=== PATIENT | female | born 1995 | race Caucasian/White ===

== ENCOUNTER → 2019-09-26 | Outpatient (CLI) | payer MEDICAID | LOC: LABNPT 15:14 | PROVIDERS: ATTEND Family Medicine | DX: Z34.80 Encounter for supervision of other normal pregnancy, unspecified trimester (principal) | CPT/HCPCS: 87081 ==

== ENCOUNTER → 2019-09-26 | Outpatient (CLI) | payer MEDICAID | LOC: LAB 14:57 | PROVIDERS: ATTEND Family Medicine | DX: Z34.80 Encounter for supervision of other normal pregnancy, unspecified trimester (principal) ==

== ENCOUNTER 2019-10-11 14:58 | Inpatient (IN) | payer MEDICAID ==
[~2019-10-11] VITALS: Ht 162.6 cm; Wt 95.8 kg
[2019-10-11] VITALS (28 sets, daily range): BP systolic 84–159; BP diastolic 39–94
--- NOTE | 2019-10-11 15:05 | NUR ---
JHOAN GOTTLIEB presented to unit via wheelchair from ED, accompanied by S.O., with c/o CONTRACTIONS. JHOAN GOTTLIEB weighed, gowned, voided, and to bed. EFHM and TOCO applied, VS taken. JHOAN GOTTLIEB oriented to bed controls, call light, TV, heat, and A/C controls.
[2019-10-11] MEDS ORDERED: CYCL10TA9 PO (15:33)
[2019-10-11 15:43] LABS: BILIRUBIN,URINE NEGATIVE (NEGATIVE); CLARITY,URINE CLEAR; COLOR,URINE YELLOW; GLUCOSE, URINE (UA) NEGATIVE (NEGATIVE); KETONES,URINE NEGATIVE (NEGATIVE); LEUKOCYTE ESTERASE ,URINE NEGATIVE (NEGATIVE); NITRITE,URINE NEGATIVE (NEGATIVE); PH,URINE 6.5 (5-9); PROTEIN,URINE NEGATIVE (NEGATIVE)
[2019-10-11 15:55] LABS: BACTERIA,URINE FEW /HPF
--- NOTE | 2019-10-11 16:23 | NUR ---
Dr Messina called and notified of pt arrival. Pt c/o ctx since 1000 this am, getting increasingly closer together and stronger. notified of pt hx, FHR, ctx pattern, SVE, UA, VS. Orders rec'd to observe pt for 2hrs and recheck cervix, unless SVE is warranted sooner.
[2019-10-11] MEDS ORDERED: D5 LR IV SOLUTION 1,000 ML IV ONE (18:20)
--- OUTSIDE RECORDS SUMMARY | 2019-10-11 18:25 | XMS REPORT | Continuity of Care Document ---
Demographics Preferred Language Unknown Marital Status Unknown Gnosticism Affiliation Unknown Race Unknown Ethnic Group Unknown Author Organization Unknown Address Unknown Phone Unavailable Allergies There is no data. Medications There is no data. Problems Date Dx Coded Attending Type Code Diagnosis Diagnosed By 09/29/2019 JANAK BROWNE, NASRA Bradshaw Ot Z34.80 ENCOUNTER FOR SUPRVSN OF NORMAL PREGNANC 09/29/2019 NASRA BRICENO MD Ot Z34.80 ENCOUNTER FOR SUPRVSN OF NORMAL PREGNANC 09/29/2019 NASRA BRICENO MD Ot Z34.80 ENCOUNTER FOR SUPRVSN OF NORMAL PREGNANC Procedures There is no data. Results Test Result Range CBC - 03/25/19 12:51 WHITE BLOOD CELL COUNT 10.9 Thousand/uL 3.8-10.8 RED BLOOD CELL COUNT 4.27 Million/uL 3.8 0-5.10 HEMOGLOBIN 13.6 g/dL 11.7-15.5 HEMATOCRIT 39.4 % 35.0-45.0 MCV 92.3 fL 80.0-100.0 MCH 31.9 pg 27.0-33.0 MCHC 34.5 g/dL 32.0-36.0 RDW 12.5 % 11.0-15.0 PLATELET COUNT 300 Thousand/uL 140-400 MPV 9.3 fL 7.5-12.5 ABSOLUTE NEUTROPHILS 7303 cells/uL 1500- 7800 ABSOLUTE LYMPHOCYTES 2889 cells/uL 850-3 900 ABSOLUTE MONOCYTES 632 cells/uL 200-950 ABSOLUTE EOSINOPHILS 44 cells/uL 15-500 ABSOLUTE BASOPHILS 33 cells/uL 0-200 NEUTROPHILS 67 % NRG LYMPHOCYTES 26.5 % NRG MONOCYTES 5.8 % NRG EOSINOPHILS 0.4 % NRG BASOPHILS 0.3 % NRG GC/CHLAMYDIA (SWAB OR URINE)-RAPID - 06/05 09:57 CHLAMYDIA TRACHOMATIS RNA, TMA NOT DETECTED NOT DETECTED NEISSERIA GONORRHOEAE RNA, TMA NOT DETECTED NOT DETECTED COMMENT NRG GLUCOSE JOSEE 1 HOUR - 08/01/19 09:58 GLUCOSE, POSTPRANDIAL/ 1 HOUR 128 mg/dL See Note: CBC - 08/01/19 09:58 WHITE BLOOD CELL COUNT 11.8 Thousand/uL 3.8-10.8 RED BLOOD CELL COUNT 3.63 Million/uL 3.8 0-5.10 HEMOGLOBIN 11.9 g/dL 11.7-15.5 HEMATOCRIT 34.7 % 35.0-45.0 MCV 95.6 fL 80.0-100.0 MCH 32.8 pg 27.0-33.0 MCHC 34.3 g/dL 32.0-36.0 RDW 12.8 % 11.0-15.0 PLATELET COUNT 287 Thousand/uL 140-400 MPV 9.8 fL 7.5-12.5 ABSOLUTE NEUTROPHILS 8531 cells/uL 1500- 7800 ABSOLUTE LYMPHOCYTES 2419 cells/uL 850-3 900 ABSOLUTE MONOCYTES 708 cells/uL 200-950 ABSOLUTE EOSINOPHILS 118 cells/uL 15-500 ABSOLUTE BASOPHILS 24 cells/uL 0-200 NEUTROPHILS 72.3 % NRG LYMPHOCYTES 20.5 % NRG MONOCYTES 6.0 % NRG EOSINOPHILS 1.0 % NRG BASOPHILS 0.2 % NRG SYPHILIS (RPR W/ REFLEX CONFIRMATION) - 08/01/19 09:58 RPR (DX) W/REFL TITER AND CONFIRMATORY TESTING NON-REACTIVE NON-REACTIVE Streptococcus agalactiae detection by or ganism specific culture - 09/26/19 15:14 Complete urinalysis with reflex to cultu re - 10/11/19 15:25 Urine color determination YELLOW NRG Urine clarity determination CLEAR NR G Urine pH measurement by test strip 6.5 5-9 Specific gravity of urine by test strip 1.020 1.016-1.022 Urine protein assay by test strip, semi-quantitative NEGATIVE NEGATIVE Urine glucose detection by automated test strip NE GATIVE NEGATIVE Erythrocytes detection in urine sediment by light micr oscopy NEGATIVE NEGATIVE Urine ketones detection by automated test strip NE GATIVE NEGATIVE Urine nitrite detection by test strip NEGATIVE NEGATIVE Urine total bilirubin detection by test strip NEGA TIVE NEGATIVE Urine urobilinogen measurement by automated test strip (mass/volume) 0.2 mg/dL < = 1.0 Urine leukocyte esterase detection by dipstick NEG ATIVE NEGATIVE Automated urine sediment erythrocyte cou nt by microscopy (number/high power field) NONE NRG Automated urine sediment leukocyte count by microscopy (number/high power field) [HPF] NRG Bacteria detection in urine sediment by light microsco py FEW NRG Squamous epithelial cells detection in u rine sediment by light microscopy 5-10 NRG Crystals detection in urine sediment by light microsco py NONE NRG Casts detection in urine sediment by light microscopy NONE NRG Mucus detection in urine sediment by light microscopy NEGATIVE NRG Complete urinalysis with reflex to culture YES NRG Encounters ACCT No. Visit Date/Time Discharge Status Pt. Type Provider Facility Loc./Unit Complaint [id number] 08/01/2019 09:30:00 Document Registration [id number] 05/29/2019 09:20:00 Document Registration [id number] 03/25/2019 11:40:00 Document Registration [id number] 09/26/2019 15:14:00 23:59:59 CLS Outpatient NASRA BRICENO MD [facility] LABNPT [id number] 09/26/2019 14:57:00 23:59:59 CLS Outpatient NASRA BRICENO MD [facility] LAB SUPERVISION OF OTHER N ORMAL ; ANTEPARTUM [id number] 10/20/2019 06:00:00 P EN Preadmit NASRA BRICENO MD INDUCTION [id number] 10/11/2019 15:56:00 Document Registration
[2019-10-11] MEDS ORDERED: MINERAL OIL CONCENTRATE 99.9% 15 ML UDC TOP PRN (18:30)
[2019-10-11 19:50] LABS: BASOPHILS % (AUTO) 0 % (0-10); EOSINOPHILS # (AUTO) 0.2 10^3/uL (0.0-0.3); EOSINOPHILS % (AUTO) 1 % (0-10); HEMATOCRIT 38 % (35-52); HEMOGLOBIN 12.9 G/DL (11.5-16.0); LYMPHOCYTES # (AUTO) 2.6 X 10^3 (1.0-4.0); LYMPHOCYTES % (AUTO) 16 % (12-44); MEAN CORPUSCULAR HEMOGLOBIN 32 PG (25-34); MEAN CORPUSCULAR HGB CONC 34 G/DL (32-36); MEAN CORPUSCULAR VOLUME 95 FL (80-99); MEAN PLATELET VOLUME 9.7 FL (7.4-10.4); MONOCYTES # (AUTO) 1.3 X 10^3 (0.0-1.0); MONOCYTES % (AUTO) 8 % (0-12); NEUTROPHILS # (AUTO) 12.4 X 10^3 (1.8-7.8); NEUTROPHILS % (AUTO) 75 % (42-75); PLATELET COUNT 264 10^3/uL (130-400); WHITE BLOOD COUNT 16.5 10^3/uL (4.3-11.0)
[2019-10-11] MEDS ORDERED: fentaNYL 2 mcg/ml BUPIVA 0.125 100 ML ONE (20:18)
[2019-10-11] MEDS ORDERED: OXYTOCIN PRE-MIX DRIP 500 ML IV SCH (20:21)
[2019-10-11 20:46] LABS: BAND NEUTROPHILS 5 %; LYMPHOCYTES % (MANUAL) 16 %; MONOCYTES % (MANUAL) 7 %; NEUTROPHILS % (MANUAL) 72 %
[2019-10-11] MEDS ORDERED: fentaNYL INJECTION 100 MCG/2 ML AMP ONE (21:05)
[2019-10-11] MEDS ORDERED: BUPIVACAINE 0.25% 30 ML (SENSORCAINE) VIAL ONE (21:05)
--- NOTE | 2019-10-11 21:12 | NUR ---
Aditya Uribe CRNA here for epidural placement. Procedure explained, consent reviewed and signed by anesthesia. Questions answered to patient's satisfaction. Time out taken to verify correct patient/procedure. Patient up to side of bed, assisted into sitting position. Betadine prep done x3 and sterile drape applied. Local done, see anesthesia record. Test dose given, see anesthesia record for drug and dosage. Epidural catheter secured in place. Epidural placement complete. Assisted back into bed, monitors adjusted. Epidural dosed, see anesthesia record. Epidural of Sufenta/Bupvicaine @ 10 cc/hr started per pump per ACCOUNTING MANAGER ASSISTANT CONTROLLER. Patient tolerated procedure well.
[2019-10-11] MEDS: EPIDURAL (fentaNYL 2 MCG/ML BUPIVA 0.125%)100 ML BAG EPI SCH (21:32)
[2019-10-11] MEDS ORDERED: fentaNYL 2 mcg/ml BUPIVA 0.125 100 ML IV SCH (21:37)
[2019-10-11] MEDS ORDERED: LACTATED RINGERS 1,000 ML IV ONE (21:37)
[2019-10-11] MEDS ORDERED: NALOXONE 0.4 MG/ML 1 ML (NARCAN) VIAL IV PRN (21:45)
[2019-10-11] MEDS ORDERED: CATHETER FLUSH 10 ML SYR IV PRN (21:45)
[2019-10-11] MEDS: CATHETER FLUSH 10 ML SYR IV SCH (22:17)
[2019-10-12] VITALS (53 sets, daily range): BP systolic 99–151; BP diastolic 52–91
[2019-10-12] MEDS: D5 LR IV SOLUTION 1,000 ML IV SCH ×2 (02:42→10:50)
[2019-10-12] MEDS: CATHETER FLUSH 10 ML SYR IV SCH (06:33)
[2019-10-12] MEDS ORDERED: ONDANSETRON 4 MG/2 ML (SDV) Z0FRAN ONE (07:09)
[2019-10-12] MEDS ORDERED: ONDANSETRON 4 MG/2 ML (SDV) Z0FRAN IV PRN (07:30)
[2019-10-12] MEDS ORDERED: METOCLOPRAMIDE INJ 10 MG/2 ML (REGLAN) IV PRN (07:30)
[2019-10-12] MEDS: EPIDURAL (fentaNYL 2 MCG/ML BUPIVA 0.125%)100 ML BAG EPI SCH (07:36)
--- NOTE | 2019-10-12 09:56 | History & Physical-OB ---
OB - Chief Complaint & HPI Date/Time Date of Admission: Date of Admission: Oct 11, 2019 at 18:16 Date seen by a Provider: Oct 12, 2019 Time Seen by a Provider: 08:30 Chief Complaint/History OB-Reason for Admission/Chief: Onset of Labor Hx : 3 Hx Para: 2 Expected Date of Delivery: October 26, 2019 Gestational Age in Weeks: 37 Gestational Age in Days: 6 Admission Nurse Assessment Rev: Yes Allergies and Home Medications Allergies Coded Allergies: No Known Drug Allergies (Unverified , 10/11/19) Home Medications Cyclobenzaprine HCl 10 Mg Tablet, 10 MG PO PRN, (Reported) Patient Home Medication List Home Medication List Reviewed: Yes OB - History Hx of Present Care: Yes Ultrasounds: Normal mid trimester US Obstetrical Complications: None Medical Complications: None Obstetrical History Hx : 3 Hx Para: 2 Delivery History Adverse Rxn to Tranfusion: No Patient Past Medical History previously healthy; cystic fibrosis carrier Social History/Family History Alcohol Use: Denies Use Recreational Drug Use: No OB - Admission Exam Physical Exam Vitals: Vital Signs 10/11/19 10/11/19 10/12/19 10/12/19 17:10 23:45 03:00 07:00 Temp 36.4 Pulse 75 Resp 16 B/P (MAP) 125/71 (89) Pulse Ox 99 O2 Delivery Room Air HEENT: NCAT Heart: Rhythm Normal Lungs: Clear Abdomen: Gravid Extremities: Normal Reflexes: Normal Cervical Dilatation: 7cm Effacement: 100% Station: -1 Membranes: Ruptured Amniotic Fluid: Clear Heart Rate: 130's Accelerations: Accelerations Present Decelerations: No Decelerations Short Term Variability: Present Perinatal Coordinator Variability: Average (6-25) Contractions on Admission: < 5 Minutes Apart Labs Laboratory Tests Test 10/11/19 15:25 10/11/19 19:30 Range/Units Urine Color YELLOW Urine Clarity CLEAR Urine pH 6.5 5-9 Urine Specific [place] 1.020 1.016-1.022 Urine Protein NEGATIVE NEGATIVE Urine Glucose (UA) NEGATIVE NEGATIVE Urine Ketones NEGATIVE NEGATIVE Urine Nitrite NEGATIVE NEGATIVE Urine Bilirubin NEGATIVE NEGATIVE Urine Urobilinogen 0.2 < = 1.0 MG/DL Urine Leukocyte Esterase NEGATIVE NEGATIVE Urine RBC (Auto) NEGATIVE NEGATIVE Urine RBC NONE /HPF Urine WBC 2-5 /HPF Urine Squamous Epithelial Cells 5-10 /HPF Urine Crystals NONE /LPF Urine Bacteria FEW H /HPF Urine Casts NONE /LPF Urine Mucus NEGATIVE /LPF Urine Culture Indicated YES White Blood Count 16.5 H 4.3-11.0 10^3/uL Red Blood Count 3.98 L 4.35-5.85 10^6/uL Hemoglobin 12.9 11.5-16.0 G/DL Hematocrit 38 35-52 % Mean Corpuscular Volume 95 80-99 FL Mean Corpuscular Hemoglobin 32 25-34 PG Mean Corpuscular Hemoglobin Concent 34 32-36 G/DL Red Cell Distribution Width 13.0 10.0-14.5 % Platelet Count 264 130-400 10^3/uL Mean Platelet Volume 9.7 7.4-10.4 FL Neutrophils (%) (Auto) 75 42-75 % Lymphocytes (%) (Auto) 16 12-44 % Monocytes (%) (Auto) 8 0-12 % Eosinophils (%) (Auto) 1 0-10 % Basophils (%) (Auto) 0 0-10 % Neutrophils # (Auto) 12.4 H 1.8-7.8 X 10^3 Lymphocytes # (Auto) 2.6 1.0-4.0 X 10^3 Monocytes # (Auto) 1.3 H 0.0-1.0 X 10^3 Eosinophils # (Auto) 0.2 0.0-0.3 10^3/uL Basophils # (Auto) 0.0 0.0-0.1 10^3/uL Neutrophils % (Manual) 72 % Lymphocytes % (Manual) 16 % Monocytes % (Manual) 7 % Band Neutrophils 5 % OB - Assessment/Plan/Diagnosis Assessment Assessment: active labor Admission Dx Normal labor at 38 0/7 wga. Admission Status: Inpatient Order (span 2 midnights) Reason for Inpatient Admission: Labor. Plan Plan: Expectant Management, Other Induction Method: per Pitocin Protocol Other Plan AROM clear fluid. Change positions to bring head down; epidural for pain. GBS negative. NASRA BRICENO MD Oct 12, 2019 09:56
--- NOTE | 2019-10-12 11:55 | OB Labor & Delivery Record ---
Vag Delivery Note Vag Delivery Note Date of Delivery: 10/12/19 Preoperative Diagnosis: Aicha Young is a (24 /Para 3 / 2,Gestational Age (wks)38 0/7 wga Postoperative Diagnosis: Same Surgeon: NASRA BRICENO Miter Grinder Operator: [none] Anesthesia: [epidural] Delivery Type: [] Findings: [] Viable [male] infant, apgars [8/9], weight [8 pounds 13 ounces] Lacerations: Intact placenta with 3 vessel cord. No nuchal cord, body cord or shoulder dystocia Estimated Blood Loss: [300] ml Complications: None Condition: Stable Description of Procedure: The patient is a 24 year old female who presented [in labor]. She was admitted and informed consent was obtained. Her labor course was remarkable for [persistent OP] She progressed to complete dilatation and began to push. She was then set up for delivery. The infant's head was delivered atraumatically in the [] position. The shoulders and remainder of the infant's body were then delivered without difficulty. Upon delivery, the head was held below the level of the perineum and the mouth and nares were bulb suctioned. The cord was doubly clamped and cut on maternal abdomen by father of the baby after 60 seconds. An intact placenta with 3-vessel cord delivered via A[place] and there was found to be minimal bleeding.~ Vigorous fundal massage was performed and the fundus was found to be firm. IV oxytocin was given. Examination of the vagina and perineum revealed no lacerations. Following the repair, sponge, instrument and needle counts were correct. Mom and baby were both in stable condition in the labor suite. Vitals - Labs Vital Signs - I&O Vital Signs Date Time Temp Pulse Resp B/P (MAP) Pulse Ox O2 Delivery O2 Flow Rate FiO2 10/12/19 10:15 36.7 76 16 118/63 (81) 10/12/19 09:45 70 16 122/63 (82) 10/12/19 09:30 67 16 127/66 (86) 10/12/19 09:15 68 16 132/79 (96) 10/12/19 08:45 72 16 130/70 (90) 10/12/19 08:30 73 16 128/66 (86) 10/12/19 08:15 71 16 139/73 (95) 10/12/19 08:00 71 16 122/74 (90) 10/12/19 07:45 73 16 116/66 (83) 10/12/19 07:30 36.3 67 16 115/64 (81) 10/12/19 07:15 69 16 125/70 (88) 10/12/19 07:00 75 16 125/71 (89) 10/12/19 06:45 75 16 125/74 (91) 10/12/19 06:30 76 16 128/69 (88) 10/12/19 06:15 71 16 131/80 (97) 10/12/19 06:00 80 16 99/52 (68) 10/12/19 05:45 83 16 104/52 (69) 10/12/19 05:30 80 16 117/62 (80) 10/12/19 05:15 76 16 127/73 (91) 10/12/19 05:00 96 16 119/64 (82) 10/12/19 04:45 76 16 129/67 (87) 10/12/19 04:30 86 16 108/56 (73) 10/12/19 04:15 72 16 113/61 (78) 10/12/19 04:00 82 16 111/61 (78) 10/12/19 03:45 72 16 118/66 (83) 10/12/19 03:30 75 16 125/71 (89) 10/12/19 03:15 72 16 120/56 (77) 10/12/19 03:00 36.4 88 16 131/62 (85) 10/12/19 02:45 73 16 129/60 (83) 10/12/19 02:30 93 16 123/61 (81) 10/12/19 02:15 75 16 129/67 (87) 10/12/19 02:00 74 16 115/58 (77) 10/12/19 01:45 73 16 123/61 (81) 10/12/19 01:30 76 16 122/59 (80) 10/12/19 01:15 74 16 135/60 (85) 10/12/19 01:00 87 16 118/75 (89) 10/12/19 00:45 105 16 116/54 (74) 10/12/19 00:30 80 16 122/61 (81) 10/12/19 00:15 78 16 119/65 (83) 10/12/19 00:00 80 16 119/64 (82) 10/11/19 23:45 35.7 85 16 114/70 (85) 99 10/11/19 23:30 77 16 115/60 (78) 96 10/11/19 23:15 85 16 126/72 (90) 97 10/11/19 23:00 89 16 104/65 (78) 98 10/11/19 22:45 91 16 112/57 (75) 97 10/11/19 22:30 77 16 110/94 (99) 96 10/11/19 22:10 77 16 84/39 (54) 97 10/11/19 22:05 84 16 119/57 (77) 97 10/11/19 22:00 73 16 116/57 (76) 98 10/11/19 21:55 84 16 125/58 (80) 98 10/11/19 21:50 76 16 114/62 (79) 98 10/11/19 21:46 77 16 111/58 (75) 98 10/11/19 21:43 96 16 129/55 (79) 97 10/11/19 21:40 96 16 123/60 (81) 97 10/11/19 21:35 92 16 128/58 (81) 97 10/11/19 21:32 99 16 129/59 (82) 97 10/11/19 21:30 99 16 134/73 (93) 97 10/11/19 21:25 94 16 140/74 (96) 98 10/11/19 21:23 86 16 147/80 (102) 99 10/11/19 21:20 89 16 148/78 (101) 98 10/11/19 21:15 90 16 138/86 (103) 10/11/19 20:20 88 16 138/78 (98) 10/11/19 19:20 36.0 81 16 141/83 (102) 10/11/19 17:45 81 18 159/94 (115) 10/11/19 17:10 37.0 86 18 98 Room Air 10/11/19 17:08 37.0 86 18 98 Room Air 10/11/19 16:05 91 18 155/94 (114) 10/11/19 15:25 37.0 86 18 155/90 (111) 98 I & O 10/12/19 07:00 Intake Total 2000 ml Balance 2000 ml Labs Laboratory Tests 10/11/19 15:25: Urine Color YELLOW, Urine Clarity CLEAR, Urine pH 6.5, Urine Specific [place] 1.020, Urine Protein NEGATIVE, Urine Glucose (UA) NEGATIVE, Urine Ketones NEGATIVE, Urine Nitrite NEGATIVE, Urine Bilirubin NEGATIVE, Urine Urobilinogen 0.2, Urine Leukocyte Esterase NEGATIVE, Urine RBC (Auto) NEGATIVE, Urine RBC NONE, Urine WBC 2-5, Urine Squamous Epithelial Cells 5-10, Urine Crystals NONE, Urine Bacteria FEWH, Urine Casts NONE, Urine Mucus NEGATIVE, Urine Culture Indicated YES 10/11/19 19:30: White Blood Count 16.5H, Red Blood Count 3.98L, Hemoglobin 12.9, Hematocrit 38, Mean Corpuscular Volume 95, Mean Corpuscular Hemoglobin 32, Mean Corpuscular Hemoglobin Concent 34, Red Cell Distribution Width 13.0, Platelet Count 264, Mean Platelet Volume 9.7, Neutrophils (%) (Auto) 75, Lymphocytes (%) (Auto) 16, Monocytes (%) (Auto) 8, Eosinophils (%) (Auto) 1, Basophils (%) (Auto) 0, Neutrophils # (Auto) 12.4H, Lymphocytes # (Auto) 2.6, Monocytes # (Auto) 1.3H, Eosinophils # (Auto) 0.2, Basophils # (Auto) 0.0, Neutrophils % (Manual) 72, Lymphocytes % (Manual) 16, Monocytes % (Manual) 7, Band Neutrophils 5 NASRA BRICENO MD Oct 12, 2019 11:55
[2019-10-12] MEDS ORDERED: TETANUS,DIPTH,PERTUSS P/F (BOOSTRIX) 0.5 ML VIAL IM ONE (12:00)
[2019-10-12] MEDS ORDERED: MEASLES,MUMPS,RUBELLA 1 EA INJ SQ ONE (12:00)
[2019-10-12] MEDS ORDERED: WITCH HAZEL(TUCKS) 40 EA JAR TOP PRN (12:00)
[2019-10-12] MEDS ORDERED: BENZOCAINE/MENTHOL (DERMOPLAST) 60 ML CAN TP PRN (12:00)
[2019-10-12] MEDS: OXYTOCIN PRE-MIX DRIP 500 ML IV SCH ×2 (12:12→16:54)
[2019-10-12] MEDS ORDERED: CATHETER FLUSH 10 ML SYR IV SCH (14:00)
--- NOTE | 2019-10-12 14:00 | NUR ---
FFU/1, light rubra lochia noted, no clots expressed. Pt assisted to sitting at side of bed. Fresh gown, pad, and underwear applied. Pt assisted to wheelchair without incident. Taken to room 309. Pt assisted to bed. Pt and s.o. oriented to room and call light. packet explained. Fresh ice water provided. No needs or concerns voiced at this time.
[2019-10-12] MEDS: IBUPROFEN 600 MG (MOTRIN) TAB PO SCH ×2 (14:03→19:36)
--- NOTE | 2019-10-12 15:00 | NUR ---
Pt assisted to bathroom at this time. Spontaneous void without difficulty. Pericare demonstrated and performed. Pt makes RN aware of reddened sore area over sacrum, with a few small white pustules noted. Area cleaned well and barrier cream applied. Encouraged pt to mention to Dr. Messina tomorrow.
--- NOTE | 2019-10-12 18:00 | NUR ---
Shower set up for pt at this time.
--- NOTE | 2019-10-12 19:35 | NUR ---
Nurse at pt bedside. Pt has just gotten out of the shower. Pt. states she is doing well. Assessment and vitals complete at this time. Sore on pt buttocks assessed at this time. Pt states that it is quite sore so she has been putting Dermoplast on it to help with pain. Pt. request lanolin and more underwear at this time. These provided. Pt. is going to feed infant and call out when he is done for bath. No other questions or concerns noted.
[2019-10-12] MEDS: DOCUSATE SODIUM 100 MG (COLACE) CAP PO SCH (21:00)
[2019-10-12] MEDS: ACETAMINOPHEN 500 MG TAB (TYLENOL) PO SCH (23:42)
[2019-10-13] MEDS: IBUPROFEN 600 MG (MOTRIN) TAB PO SCH ×4 (02:36→20:42)
[2019-10-13 03:30] VITALS: BP 132/82
[2019-10-13 05:33] LABS: BASOPHILS % (AUTO) 0 % (0-10); EOSINOPHILS # (AUTO) 0.2 10^3/uL (0.0-0.3); EOSINOPHILS % (AUTO) 2 % (0-10); HEMATOCRIT 32 % (35-52); HEMOGLOBIN 10.8 G/DL (11.5-16.0); LYMPHOCYTES # (AUTO) 3.2 X 10^3 (1.0-4.0); LYMPHOCYTES % (AUTO) 24 % (12-44); MEAN CORPUSCULAR HEMOGLOBIN 32 PG (25-34); MEAN CORPUSCULAR HGB CONC 34 G/DL (32-36); MEAN CORPUSCULAR VOLUME 96 FL (80-99); MEAN PLATELET VOLUME 9.7 FL (7.4-10.4); MONOCYTES % (AUTO) 7 % (0-12); NEUTROPHILS # (AUTO) 8.8 X 10^3 (1.8-7.8); NEUTROPHILS % (AUTO) 67 % (42-75); PLATELET COUNT 213 10^3/uL (130-400); RED CELL DISTRIBUTION WIDTH 12.7 % (10.0-14.5); WHITE BLOOD COUNT 13.2 10^3/uL (4.3-11.0)
[2019-10-13] MEDS: DOCUSATE SODIUM 100 MG (COLACE) CAP PO SCH ×2 (07:41→20:42)
[2019-10-13 07:45] VITALS: BP 130/71
[2019-10-13 12:00] VITALS: BP 140/79
--- NOTE | 2019-10-13 14:28 | Anesthesia-Regional Post-Op ---
Regional Patient Condition Mental Status: Alert, Oriented x3 Circulation: Same as Pre-Op Headache: Absent Sensation: Full Recovery Motor Block: Absent Post Op Complications Complications None Follow Up Care/Instructions Patient Instructions None needed. Anesthesia/Patient Condition Patient is doing well, no complaints, stable vital signs, no apparent adverse anesthesia problems. ALEKSANDAR URIARTE DO Oct 13, 2019 14:28
[2019-10-13 17:26] VITALS: BP 142/80
--- NOTE | 2019-10-13 17:37 | Progress Note ---
Subjective Subjective Date Seen by Provider: Oct 13, 2019 Time Seen by Provider: 17:34 Doing well. Pain controlled. Bleeding slowing. Baby latching well. No concerns. Review of Systems General: Chills HEENT: Head Aches Gastrointestinal: Nausea, Vomiting Objective Exam Vital Signs Vital Signs - First Documented 10/11/19 10/11/19 15:25 17:08 Temp 37.0 Pulse 86 Resp 18 B/P (MAP) 155/90 (111) Pulse Ox 98 O2 Delivery Room Air Capillary Refill : Less Than 3 Seconds General Appearance: No Apparent Distress Neck: Full Range of Motion Respiratory: Lungs Clear Cardiovascular: Regular Rate, Rhythm Gastrointestinal: Other (fundus firm below umbilicus) Extremity: No Pedal Edema Results Lab Laboratory Tests 10/13/19 05:19: White Blood Count 13.2H, Red Blood Count 3.35L, Hemoglobin 10.8L, Hematocrit 32L , Mean Corpuscular Volume 96, Mean Corpuscular Hemoglobin 32, Mean Corpuscular Hemoglobin Concent 34, Red Cell Distribution Width 12.7, Platelet Count 213, Mean Platelet Volume 9.7, Neutrophils (%) (Auto) 67, Lymphocytes (%) (Auto) 24, Monocytes (%) (Auto) 7, Eosinophils (%) (Auto) 2, Basophils (%) (Auto) 0, Neutrophils # (Auto) 8.8H, Lymphocytes # (Auto) 3.2, Monocytes # (Auto) 1.0, Eosinophils # (Auto) 0.2, Basophils # (Auto) 0.0 Microbiology 10/11/19 Urine Culture - Final, Complete 3 or more isolates Assessment/Plan Assessment/Plan Admission Status: Inpatient Order (span 2 midnights) Reason for Inpatient Admission: day 1 from vaginal delivery at 38 0/7 wga. Problems: (1) care following vaginal delivery Assessment & Plan: Doing well. Bleeding and pain controlled. Home in AM. Clinical Quality Measures DVT/VTE Risk/Contraindication: Risk Factor Score Per Nursin RFS Level Per Nursing on Admit: 1=Low/No VTE PPX NASRA BRICENO MD Oct 13, 2019 17:37
--- NOTE | 2019-10-13 17:39 | Discharge Summary ---
Discharge Inst-[facility] Reconcile Patient Problems Problems Reviewed?: Yes Depart Medications New, Converted or Re-Newed RX: Other (OTC medications) Follow Up/Instructions Goal/Follow Up: Follow up with Dr. Briceno in 6 weeks for post- visit. Activity Activity: Activity as Tolerated Driving Instructions: You May Drive NO SMOKING: NO SMOKING Nothing Inside Vagina: No Douching, No [place], No Tampons Diet Discharge Diet: No Restrictions Symptoms to Report to : Fever Over 101 Degrees F, Pain/Pressure in Chest, Vaginal Bleeding Increase For Any Problems or Questions: Contact Your Physician NASRA BRICENO MD Oct 13, 2019 17:39
[2019-10-13] MEDS: ACETAMINOPHEN 500 MG TAB (TYLENOL) PO SCH ×2 (20:43→20:44)
[2019-10-13 23:50] VITALS: BP 134/79
[2019-10-14 03:55] VITALS: BP 133/89
[2019-10-14] MEDS: IBUPROFEN 600 MG (MOTRIN) TAB PO SCH (03:55)
[2019-10-14] MEDS: ACETAMINOPHEN 500 MG TAB (TYLENOL) PO SCH (03:55)
--- NOTE | 2019-10-14 07:38 | NUR ---
Dr. Messina here to see patient. New orders received.
--- NOTE | 2019-10-14 08:49 | NUR ---
Patient showering at this time.
[2019-10-14 09:21] VITALS: BP 138/87
[2019-10-14] MEDS: DOCUSATE SODIUM 100 MG (COLACE) CAP PO SCH (09:21)
--- NOTE | 2019-10-14 09:21 | NUR ---
AM shift assessment completed and vital signs obtained, see interventions. Plan of care reviewed. Patient verbalizes understanding. Scheduled Colace PO given. Patient denies any further needs or concerns at this time.
--- NOTE | 2019-10-14 09:27 | Discharge Summary ---
Diagnosis/Chief Complaint Date of Admission Oct 11, 2019 at 18:16 Date of Discharge October 14, 2019 Admission Diagnosis Admission Diagnosis Normal labor at 37 6/7 wga. Discharge Diagnosis from vaginal delivery at 38 0/7 wga. Problems/Diagnosis: (1) care following vaginal delivery Discharge Summary-OBS Procedures None. Discharge Physical Examination Allergies: Coded Allergies: No Known Drug Allergies (Unverified , 10/11/19) Vitals & I&Os Vital Sign - Last 12Hours Date Time Temp Pulse Resp B/P (MAP) Pulse Ox O2 Delivery O2 Flow Rate FiO2 10/14/19 03:55 36.3 80 18 133/89 (104) 97 Room Air General Appearance: Alert, Oriented X3 HEENT: Atraumatic Respiratory: Clear to Auscultation Cardiovascular: Regular Rate Abdominal: Normal Bowel Sounds Extremities: No Edema Skin: Other Neuro: Normal Gait Hospital Course Was the Problem List Reviewed?: Yes patient came in and delivered vaginally at 38 weeks. her recovery was unremarkable. Labs Microbiology 10/11/19 Urine Culture - Final, Complete 3 or more isolates Discharge Instructions to patient/family Please see electronic discharge instructions given to patient. Discharge Medications Reviewed and agree with Discharge Medication list on patient's Discharge Instruction sheet Clinical Quality Measures DVT/VTE Risk/Contraindication: Risk Factor Score Per Nursin RFS Level Per Nursing on Admit: 1=Low/No VTE PPX NASRA BRICENO MD Oct 14, 2019 09:27
--- NOTE | 2019-10-14 10:30 | NUR ---
Discharge instructions reviewed with patient both written and verbally. Patient verbalizes understanding and questions answered.
--- NOTE | 2019-10-14 11:30 | NUR ---
Patient discharged at this time and accompanied down to awaiting private vehicle by Terese MCCLURE. No signs or symptoms of distress noted. Addendum: 10/14/19 at 1158 by HUMA DWYER RN Time should be 1135!
== END 2019-10-14 11:35 | disposition home or self-care (01) | DRG 807 ==
LOC: WSo 14:58 → LDRP 14:58 → WSo 18:16 → LDRP 10-12 14:00
PROVIDERS: ADMIT Family Medicine; ATTEND Family Medicine
PROC: 10E0XZZ Delivery of Products of Conception, External Approach (ICD-10-PCS; principal; 2019-10-12)
DX: O64.0XX0 Obstructed labor due to incomplete rotation of fetal head, not applicable or unspecified (principal); Z37.0 Single live birth; Z3A.38 38 weeks gestation of pregnancy; Z14.1 Cystic fibrosis carrier
CPT/HCPCS: 36415; 81000; 85007; 85025; 85027; 86850; 86900; 86901; 87088; 99212